=== PATIENT | female | born 2000 | race Caucasian/White ===

== ENCOUNTER 2022-11-27 12:02 | Emergency (ER) | payer BC ==
--- NOTE | 2022-11-27 12:12 | ERPHSYRPT ---
- History of Present Illness Time Seen by Provider: 11/27/22 12:12 Historian: patient Exam Limitations: no limitations Physician History: This is a 22-year-old white female patient of Dr. Colby who is approximately 12 weeks has not seen an continuous process tanner rotary drum at this time but will be seen 1 in [facility] and presents with intermittent vomiting for 12 weeks. She feels as though her vomiting is more frequent. She was given a prescription for Zofran and ODT but that did not help. Patient states she does have a history of recurrent urinary tract infections even prior to her . Patient has had no vaginal bleeding, she has no crampy abdominal pain. She denies chest pain and she denies shortness of breath. Timing/Duration: intermittent, worse Severity of Pain-Max: none Severity of Pain-Current: none Modifying Factors: Improves With: vomiting Associated Symptoms: nausea, vomiting, weakness Previous symptoms: same symptoms as today, no recent treatment Allergies/Adverse Reactions: Penicillins Allergy (Severe, Verified 11/27/22 12:15) Hives amoxicillin Allergy (Intermediate, Verified 11/27/22 12:15) Hives Travel Risk - International Travel Have you traveled outside of the country in past 3 weeks: No - Coronavirus Screening Are you exhibiting any of the following symptoms?: No Close contact with a COVID-19 positive Pt in past 14-21 Days: No - Review of Systems Constitutional: Weakness Eyes: No Symptoms Ears, Nose, & Throat: No Symptoms Respiratory: No Symptoms Cardiac: No Symptoms Abdominal/Gastrointestinal: Nausea, Vomiting, Appetite Changes Genitourinary Symptoms: Musculoskeletal: No Symptoms Skin: No Symptoms Neurological: No Symptoms Psychological: No Symptoms Endocrine: No Symptoms Hematologic/Lymphatic: No Symptoms Immunological/Allergic: No Symptoms All Other Systems: Reviewed and Negative - Past Medical History Pertinent Past Medical History: No - Past Surgical History Past Surgical History: No - Nursing Vital Signs Nursing Vital Signs: Initial Vital Signs Temperature 97.2 F 11/27/22 12:09 Pulse Rate 82 11/27/22 12:09 Respiratory Rate 20 11/27/22 12:09 Blood Pressure 158/98 11/27/22 12:09 O2 Sat by Pulse Oximetry 98 11/27/22 12:09 Pain Scale Pain Intensity 0 - Physical Exam General Appearance: no apparent distress, alert, anxiety Eye Exam: PERRL/EOMI, eyes nml inspection Ears, Nose, Throat Exam: normal ENT inspection, moist mucous membranes Neck Exam: normal inspection, non-tender, supple, full range of motion Respiratory Exam: normal breath sounds, lungs clear, airway intact, No chest tenderness, No respiratory distress Cardiovascular Exam: regular rate/rhythm, normal heart sounds, normal peripheral pulses Gastrointestinal/Abdomen Exam: soft, normal bowel sounds, other ( heart tones present and estimated to be approximately 170 280 bpm), No tenderness Pelvic Exam: not done Rectal Exam: not done Back Exam: normal inspection, normal range of motion, No CVA tenderness, No vertebral tenderness Extremity Exam: normal inspection, normal range of motion, pelvis stable Neurologic Exam: alert, oriented x 3, cooperative, choir accompanist II-XII nml as tested, normal mood/affect, nml cerebellar function, nml station & gait, sensation nml Skin Exam: normal color, warm, dry Lymphatic Exam: No adenopathy SpO2 Interpretation: normal O2 Delivery: Room Air - Course Nursing assessment & vital signs reviewed: Yes Ordered Tests: Active Orders 24 hr Category Date Time Status IV Insertion STAT Care 11/27/22 12:31 Active AMYLASE Stat Lab 11/27/22 12:35 Completed CBC W DIFF Stat Lab 11/27/22 12:35 Completed CMP Stat Lab 11/27/22 12:35 Completed CULTURE,URINE Stat Lab 11/27/22 16:22 Received HCG, Quantitative (Inhouse) Stat Lab 11/27/22 12:35 Completed LIPASE Stat Lab 11/27/22 12:35 Completed UA W/RFX UR CULTURE Stat Lab 11/27/22 16:22 Completed Medication Summary Generic Name Dose Route Start Last Admin Trade Name Freq PRN Reason Stop Dose Admin Sodium Chloride 500 mls @ 500 mls/hr 11/27/22 17:24 Sodium Chloride 0.9% 500 Ml IV 11/27/22 18:23 .Q1H ONE Discontinued Medications Generic Name Dose Route Start Last Admin Trade Name Freq PRN Reason Stop Dose Admin Sodium Chloride 1,000 mls @ 999 mls/hr 11/27/22 12:31 11/27/22 13:55 Sodium Chloride 0.9% 1000 Ml IV 11/27/22 13:31 Infused .Q1H1M STA Infusion Sodium Chloride Confirm 11/27/22 12:42 Sodium Chloride 0.9% 1000 Ml Administered 11/27/22 12:43 Dose 1,000 mls @ ud .ROUTE .STK-MED ONE Sodium Chloride 1,000 mls @ 999 mls/hr 11/27/22 14:22 11/27/22 16:08 Sodium Chloride 0.9% 1000 Ml IV 11/27/22 15:22 Infused .Q1H1M STA Infusion Sodium Chloride Confirm 11/27/22 14:35 Sodium Chloride 0.9% 1000 Ml Administered 11/27/22 14:36 Dose 1,000 mls @ ud .ROUTE .STK-MED ONE Sodium Chloride Confirm 11/27/22 17:28 Sodium Chloride 0.9% 500 Ml Administered 11/27/22 17:29 Dose 500 mls @ ud IV .STK-MED ONE Ondansetron HCl 4 mg 11/27/22 12:31 11/27/22 12:43 Ondansetron Hcl 4 Mg/2 Ml Vial IV 11/27/22 12:32 4 mg STAT ONE Administration Ondansetron HCl Confirm 11/27/22 12:42 Ondansetron Hcl 4 Mg/2 Ml Vial Administered 11/27/22 12:43 Dose 4 mg .ROUTE .STK-MED ONE Potassium Chloride 20 meq 11/27/22 13:18 11/27/22 13:41 Potassium Chloride Tab 10 Meq Tab PO 11/27/22 13:19 20 meq STAT ONE Administration Potassium Chloride Confirm 11/27/22 13:39 Potassium Chloride Tab 10 Meq Tab Administered 11/27/22 13:40 Dose 20 meq PO .STK-MED ONE Lab/Rad Data: Laboratory Result Diagrams 11/27/22 12:35 11/27/22 12:35 Laboratory Results 11/27/22 11/27/22 11/27/22 Range/Units 16:22 12:35 12:35 WBC 12.5 H (4.0-10.5) x10^3/uL RBC 5.29 (4.1-5.4) x10^6/uL Hgb 15.4 (12.0-16.0) g/dL Hct 42.0 (35-47) % MCV 79.4 (78-100) fL MCH 29.1 (26-32) pg MCHC 36.7 H (32-36) g/dL RDW 12.1 (11.5-14.0) % Plt Count 302 (150-450) x10^3/uL MPV 10.5 (7.5-11.0) fL Gran % 80.5 H (36.0-66.0) % Immature Gran % (Auto) 0.4 (0.00-0.4) % Nucleat RBC Rel Count 0.0 (0.00-0.1) % Eos # (Auto) 0.03 (0-0.5) x10^3/uL Immature Gran # (Auto) 0.05 H (0.00-0.03) x10^3u/L Absolute Lymphs (auto) 1.36 (1.0-4.6) x10^3/uL Absolute Monos (auto) 0.98 (0.0-1.3) x10^3/uL Absolute Nucleated RBC 0.00 (0.00-0.01) x10^3u/L Lymphocytes % 10.9 L (24.0-44.0) % Monocytes % 7.8 (0.0-12.0) % Eosinophils % 0.2 (0.00-5.0) % Basophils % 0.2 (0.0-0.4) % Absolute Granulocytes 10.09 H (1.4-6.9) x10^3/uL Basophils # 0.02 (0-0.4) x10^3/uL Sodium 137 (137-145) mmol/L Potassium 3.0 L* (3.5-5.1) mmol/L Chloride 95 L (98-107) mmol/L Carbon Dioxide 23 (22-30) mmol/L Anion Gap 21.7 H (5-15) MEQ/L BUN 15 (7-17) mg/dL Creatinine 0.63 (0.52-1.04) mg/dL Estimated GFR > 60.0 ML/MIN Glucose 116 H (74-106) mg/dL Calcium 9.8 (8.4-10.2) mg/dL Total Bilirubin 1.10 (0.2-1.3) mg/dL AST 23 (14-36) U/L ALT 19 (0-35) U/L Alkaline Phosphatase 61 (38-126) U/L Serum Total Protein 8.3 H (6.3-8.2) g/dL Albumin 4.8 (3.5-5.0) g/dL Amylase 91 (30-110) U/L Lipase 157 (23-300) U/L Beta HCG, Quant 665540 mIU/ml Urine Color Dark Yellow A (Yellow) Urine Appearance Clear (Clear) Urine pH 5.5 (4.6-8.0) Ur Specific [place] >=1.030 A (1.005-1.030) Urine Protein 100 A (Negative) Urine Glucose (UA) Negative (Negative) mg/dL Urine Ketones >=160 A (Negative) Urine Blood Negative (Negative) Urine Nitrite Negative (Negative) Urine Bilirubin Negative (Negative) Urine Urobilinogen 1.0 A (0.2) mg/dL Ur Leukocyte Esterase Negative (Negative) U Hyaline Cast (Auto) 26-50 A (0-2) /LPF Urine Microscopic RBC 0-2 (0-5) /HPF Urine Microscopic WBC 6-10 A (0-5) /HPF Ur Epithelial Cells Few (None Seen) /HPF Urine Bacteria Few A (None Seen) /HPF Urine Culture Reflexed YES (NO) - Progress Progress: improved, re-examined Progress Note: 11/27/22 17:29 Patient's medical issue is 1 of moderate complexity. The level of complexity and the work-up performed is based on review of the patient's past medical history, medication list, drug allergy list, history of present illness and physical findings on examination. Work-up here today includes placement of intravenous line, infusion of 2-1/2 L of normal saline solution to treat her dehydration, CBC, CMP, urinalysis and providing her with Zofran 4 mg intravenously. The results of the work-up were reviewed by me. Patient has dehydration secondary to vomiting. Patient is vomiting secondary to . Patient has Zofran medication at home. After hydrating her, the patient states she is feeling improved. She has been tolerating water and would like to try Sprite/slice. If she tolerates this well and receives the final 500 mL of normal saline we will discharge her to home with instruction to follow-up with her primary care provider for further evaluation management. Counseled pt/family regarding: lab results, diagnosis, need for follow-up Medical Desision Making - Independent Historian Additional History obtained from: Spouse - Discussion of managment Reviewed:: Test results Agreed on:: Treatment plan, need for follow-up - Diagnostic Testing Diagnostic test were ordered, analyzed, and reviewed by me: Yes - Risk of complications The pt has a mod risk of morbidity or mortality based on: Need for prescription drug management - Departure Departure Disposition: Home Clinical Impression: Vomiting during , Dehydration Condition: Stable Critical Care Time: No Referrals: NAYELI COLBY MD [Primary Care Provider] - Follow up/PCP as directed Additional Instructions: Drink plenty of clear liquids. Do not advance her diet until you are drinking clear liquids well. Use your Zofran medication if needed. Call your continuous process tanner rotary drum tomorrow, 11/28/2022 for further evaluation and management. Prescriptions: Ondansetron ODT 4 MG [Zofran Odt 4 mg] 4 mg PO Q6H PRN PRN #10 tablet PRN Reason: Vomiting
[2022-11-27] MEDS ORDERED: Sodium Chloride 0.9% 1000 ML 1,000 ML IV STA ×2 (12:31→14:22)
[2022-11-27] MEDS ORDERED: Zofran 4 MG/2 ML VIAL IV ONE (12:31)
[2022-11-27] MEDS ORDERED: Sodium Chloride 0.9% 1000 ML 1,000 ML ONE ×2 (12:42→14:35)
[2022-11-27] MEDS ORDERED: Zofran 4 MG/2 ML VIAL ONE (12:42)
[2022-11-27 12:46] LABS: Absolute Neutrophil Ct (ANC) 10.09 x10^3/uL (1.4-6.9); BASOPHIL % 0.2 % (0.0-0.4); Basophil (Absolute #) 0.02 x10^3/uL (0-0.4); Eosinophil % 0.2 % (0.00-5.0); Eosinophil (Absolute #) 0.03 x10^3/uL (0-0.5); Hemoglobin 15.4 g/dL (12.0-16.0); IMMATURE GRAN # 0.05 x10^3u/L (0.00-0.03); IMMATURE GRAN % 0.4 % (0.00-0.4); Lymphocyte (Absolute #) 1.36 x10^3/uL (1.0-4.6); Lymphocytes % 10.9 % (24.0-44.0); Mean Cell Volume 79.4 fL (78-100); Mean Corpuscular Hemoglobin 29.1 pg (26-32); Mean Corpuscular Hgb Concent. 36.7 g/dL (32-36); Mean Platelet Volume 10.5 fL (7.5-11.0); Monocyte (Absolute #) 0.98 x10^3/uL (0.0-1.3); Monocytes % 7.8 % (0.0-12.0); Neutrophil % 80.5 % (36.0-66.0); Platelet Count 302 x10^3/uL (150-450); Red Blood Count 5.29 x10^6/uL (4.1-5.4); Red Cell Distribution Width 12.1 % (11.5-14.0); White Blood Count 12.5 x10^3/uL (4.0-10.5)
[2022-11-27] MEDS ORDERED: Klor Con PO ONE ×2 (13:18→13:39)
[2022-11-27 13:19] LABS: ALBUMIN 4.8 g/dL (3.5-5.0); ALKALINE PHOSPHATASE 61 U/L (38-126); AMYLASE 91 U/L (30-110); ANION GAP 21.7 MEQ/L (5-15); BLOOD UREA NITROGEN 15 mg/dL (7-17); CHLORIDE 95 mmol/L (98-107); Calcium 9.8 mg/dL (8.4-10.2); Carbon Dioxide 23 mmol/L (22-30); Creatinine 1 0.63 mg/dL (0.52-1.04); EST GLOMERULAR FILTRATION RATE > 60.0 ML/MIN; Glucose 116 mg/dL (74-106); LIPASE 157 U/L (23-300); SGOT/AST 23 U/L (14-36); SGPT/ALT 19 U/L (0-35); SODIUM 137 mmol/L (137-145); Total Protein 8.3 g/dL (6.3-8.2)
[2022-11-27 13:43] LABS: HCG, Quantitative (Inhouse) 106720 mIU/ml
[2022-11-27 17:15] LABS: ADD URINE CULTURE? YES (NO); Appearance Clear (Clear); Bacteria Few /HPF (None Seen); Bilirubin Negative (Negative); Blood Negative (Negative); Epithelial Cells Few /HPF (None Seen); Glucose, Urine Negative (Negative); Hyaline Casts 26-50 /LPF (0-2); Ketones >=160 (Negative); Leukocyte Esterase Negative (Negative); Nitrite Negative (Negative); Ph 5.5 (4.6-8.0); Protein,Urine Dip 100 (Negative); RBC 0-2 /HPF (0-5); Specific Gravity >=1.030 (1.005-1.030)
[2022-11-27] MEDS ORDERED: Sodium Chloride 0.9% 500 ML 500 ML IV ONE ×2 (17:24→17:28)
[2022-11-27 17:35] VITALS: PULSE 68
[2022-11-27 17:36] VITALS: BP 113/75; O2SAT 100
== END 2022-11-27 19:02 | disposition home or self-care (01) ==
LOC: ED 12:02
DX: O21.9 Vomiting of pregnancy, unspecified (principal); Z3A.12 12 weeks gestation of pregnancy; E86.0 Dehydration; R07.9 Chest pain, unspecified
CPT/HCPCS: 36000; 36415; 80053; 81001; 82150; 83690; 84702; 85025; 87086; 96360; 96361; 96374; 99284; J2405; A9270-GY

== ENCOUNTER 2024-09-09 15:35 | Emergency (ER) | payer BC, MEDICAID ==
--- NOTE | 2024-09-09 15:58 | ERPHSYRPT ---
- History of Present Illness Time Seen by Provider: 09/09/24 15:58 Historian: patient, family Exam Limitations: no limitations Physician History: This is a 23-year-old white female patient who is approximately 6 weeks and presents with vomiting that began yesterday. She has vomited to the point where now she cannot hold anything down. She has not had diarrhea. She is has no complaints abdominal pain and she has no vaginal discharge. Her primary care provider is Dr. Colby. She has no known exposure to individuals with similar symptoms or been diagnosed with viral illness. Timing/Duration: yesterday Activities at Onset: none Severity of Pain-Max: none Severity of Pain-Current: none Modifying Factors: Improves With: vomiting Associated Symptoms: loss of appetite, nausea, vomiting, weakness Previous symptoms: no prior history, no recent treatment Allergies/Adverse Reactions: Penicillins Allergy (Severe, Verified 09/09/24 16:08) Hives amoxicillin Allergy (Intermediate, Verified 09/09/24 16:08) Hives Home Medications: Pnv No.95/Ferrous Fum/Folic AC [ Caplet] 1 tab PO DAILY 09/09/24 [History] Hx Tetanus, Diphtheria Vaccination/Date Given: No Hx Influenza Vaccination/Date Given: No Hx Pneumococcal Vaccination/Date Given: No Travel Risk - International Travel Have you traveled outside of the country in past 3 weeks: No - Emerging Infectious Disease Are you exhibiting symptoms associated with any current EIDs: Yes Symptoms: Vomitting - Review of Systems Constitutional: Weakness Eyes: No Symptoms Ears, Nose, & Throat: No Symptoms Respiratory: No Symptoms Abdominal/Gastrointestinal: Nausea, Vomiting, Appetite Changes, No Abdominal Pain Genitourinary Symptoms: Musculoskeletal: No Symptoms Skin: No Symptoms Neurological: No Symptoms Psychological: No Symptoms Endocrine: No Symptoms Hematologic/Lymphatic: No Symptoms Immunological/Allergic: No Symptoms All Other Systems: Reviewed and Negative - Past Medical History Pertinent Past Medical History: No - Past Surgical History Past Surgical History: No - Social History Smoking Status: Never smoker Exposure to second hand smoke: Yes Patient Lives Alone: No - Nursing Vital Signs Nursing Vital Signs: Initial Vital Signs Temperature 97.5 F 09/09/24 15:56 Pulse Rate 62 09/09/24 15:56 Respiratory Rate 20 09/09/24 15:56 Blood Pressure 134/63 09/09/24 15:56 O2 Sat by Pulse Oximetry 99 09/09/24 15:56 Pain Scale Pain Intensity 0 - Physical Exam General Appearance: no apparent distress, alert, anxiety Eye Exam: PERRL/EOMI, eyes nml inspection Ears, Nose, Throat Exam: dry mucous membranes Neck Exam: normal inspection, non-tender, supple, full range of motion Respiratory Exam: normal breath sounds, lungs clear, airway intact, No chest tenderness, No respiratory distress Cardiovascular Exam: regular rate/rhythm, normal heart sounds, normal peripheral pulses Gastrointestinal/Abdomen Exam: soft, normal bowel sounds, No tenderness Pelvic Exam: not done Rectal Exam: not done Back Exam: normal inspection, normal range of motion, No CVA tenderness, No vertebral tenderness Extremity Exam: normal inspection, normal range of motion, pelvis stable Neurologic Exam: alert, oriented x 3, cooperative, lever miller II-XII nml as tested, nml cerebellar function, nml station & gait, sensation nml Skin Exam: normal color, warm, dry Lymphatic Exam: No adenopathy SpO2 Interpretation: normal O2 Delivery: Room Air - Course Nursing assessment & vital signs reviewed: Yes Ordered Tests: Active Orders 24 hr Category Date Time Status AMYLASE Stat Lab 09/09/24 16:38 Completed CBC W DIFF Stat Lab 09/09/24 16:38 Completed CMP Stat Lab 09/09/24 16:38 Completed HCG, Quantitative (Inhouse) Stat Lab 09/09/24 16:38 Completed LIPASE Stat Lab 09/09/24 16:38 Completed MONO SCREEN Stat Lab 09/09/24 16:38 Completed UA W/RFX UR CULTURE Stat Lab 09/09/24 17:55 Received Medication Summary Discontinued Medications Generic Name Dose Route Start Last Admin Trade Name Pamella PRN Reason Stop Dose Admin Sodium Chloride 1,000 mls @ 999 mls/hr 09/09/24 16:25 09/09/24 16:34 Sodium Chloride 0.9% 1000 Ml IV 09/09/24 17:25 999 mls/hr .Q1H1M STA Administration Sodium Chloride Confirm 09/09/24 16:30 Sodium Chloride 0.9% 1000 Ml Administered 09/09/24 16:31 Dose 1,000 mls @ ud .ROUTE .STK-MED ONE Ondansetron HCl 4 mg 09/09/24 16:25 09/09/24 16:33 Ondansetron Hcl 4 Mg/2 Ml Vial IV 09/09/24 16:26 4 mg STAT ONE Administration Ondansetron HCl Confirm 09/09/24 16:30 Ondansetron Hcl 4 Mg/2 Ml Vial Administered 09/09/24 16:31 Dose 4 mg .ROUTE .STK-MED ONE Lab/Rad Data: Laboratory Result Diagrams 09/09/24 16:38 09/09/24 16:38 Laboratory Results 09/09/24 09/09/24 09/09/24 Range/Units 16:38 16:38 16:38 WBC (3.98-10.04) x10^3/uL RBC (3.93-5.22) x10^6/uL Hgb (11.2-15.7) g/dL Hct (34.1-44.9) % MCV (79.4-94.8) fL MCH (25.6-32.2) pg MCHC (32.2-35.5) g/dL RDW (11.7-14.4) % Plt Count (182-369) x10^3/uL MPV (9.4-12.3) fL Gran % (34.0-71.1) % Immature Gran % (Auto) (0.001-0.429) % Nucleat RBC Rel Count (0.00-0.2) % Eos # (Auto) (0.04-0.36) x10^3/uL Immature Gran # (Auto) (0.001-0.031) x10^3u/L Absolute Lymphs (auto) (1.18-3.74) x10^3/uL Absolute Monos (auto) (0.24-0.86) x10^3/uL Absolute Nucleated RBC (0.00-0.012) x10^3u/L Lymphocytes % (19.3-51.7) % Monocytes % (4.7-12.5) % Eosinophils % (0.7-5.8) % Basophils % (0.1-1.2) % Absolute Granulocytes (1.56-6.13) x10^3/uL Basophils # (0.01-0.08) x10^3/uL Sodium 138 (135-145) mmol/L Potassium 4.1 (3.5-5.1) mmol/L Chloride 103 (98-107) mmol/L Carbon Dioxide 19 L (22-30) mmol/L Anion Gap 19.3 H (5-15) MEQ/L BUN 14 (7-17) mg/dL Creatinine 0.81 (0.52-1.04) mg/dL Estimated GFR 105.9 ML/MIN Glucose 71 L (74-106) mg/dL Calcium 9.3 (8.4-10.2) mg/dL Total Bilirubin 0.80 (0.2-1.3) mg/dL AST 28 (14-36) U/L ALT 20 (0-35) U/L Alkaline Phosphatase 77 (38-126) U/L Serum Total Protein 8.3 H (6.3-8.2) g/dL Albumin 5.1 H (3.5-5.0) g/dL Amylase 70 (30-110) U/L Lipase 124 (23-300) U/L Beta HCG, Quant 72971 mIU/ml Monoscreen NEGATIVE (NEGATIVE) Influenza Type A Ag NEGATIVE (NEGATIVE) Influenza Type B Ag NEGATIVE (NEGATIVE) RSV (PCR) NEGATIVE (NEGATIVE) SARS-CoV-2 (PCR) NEGATIVE (NEGATIVE) 09/09/24 Range/Units 16:38 WBC 8.1 (3.98-10.04) x10^3/uL RBC 5.02 (3.93-5.22) x10^6/uL Hgb 13.5 (11.2-15.7) g/dL Hct 39.0 (34.1-44.9) % MCV 77.7 L (79.4-94.8) fL MCH 26.9 (25.6-32.2) pg MCHC 34.6 (32.2-35.5) g/dL RDW 13.7 (11.7-14.4) % Plt Count 232 (182-369) x10^3/uL MPV 10.0 (9.4-12.3) fL Gran % 85.8 H (34.0-71.1) % Immature Gran % (Auto) 0.5 H (0.001-0.429) % Nucleat RBC Rel Count 0.0 (0.00-0.2) % Eos # (Auto) 0 L (0.04-0.36) x10^3/uL Immature Gran # (Auto) 0.04 H (0.001-0.031) x10^3u/L Absolute Lymphs (auto) 0.81 L (1.18-3.74) x10^3/uL Absolute Monos (auto) 0.27 (0.24-0.86) x10^3/uL Absolute Nucleated RBC 0.00 (0.00-0.012) x10^3u/L Lymphocytes % 10.0 L (19.3-51.7) % Monocytes % 3.3 L (4.7-12.5) % Eosinophils % 0.0 L (0.7-5.8) % Basophils % 0.4 (0.1-1.2) % Absolute Granulocytes 6.94 H (1.56-6.13) x10^3/uL Basophils # 0.03 (0.01-0.08) x10^3/uL Sodium (135-145) mmol/L Potassium (3.5-5.1) mmol/L Chloride (98-107) mmol/L Carbon Dioxide (22-30) mmol/L Anion Gap (5-15) MEQ/L BUN (7-17) mg/dL Creatinine (0.52-1.04) mg/dL Estimated GFR ML/MIN Glucose (74-106) mg/dL Calcium (8.4-10.2) mg/dL Total Bilirubin (0.2-1.3) mg/dL AST (14-36) U/L ALT (0-35) U/L Alkaline Phosphatase (38-126) U/L Serum Total Protein (6.3-8.2) g/dL Albumin (3.5-5.0) g/dL Amylase (30-110) U/L Lipase (23-300) U/L Beta HCG, Quant mIU/ml Monoscreen (NEGATIVE) Influenza Type A Ag (NEGATIVE) Influenza Type B Ag (NEGATIVE) RSV (PCR) (NEGATIVE) SARS-CoV-2 (PCR) (NEGATIVE) - Progress Progress: improved Progress Note: 09/09/24 16:44 My medical decision making and the assignment of moderate complexity to this patient's medical issue today is based on review of the patient's past medical h istory, review of the patient's medication list, reviewed patient drug allergy list, history present illness and physical findings on examination. The workup in this patient includes placement of intravenous line, infusion of crystalloid solution, amylase, lipase, CBC, CMP, urinalysis and infusion of Zofran intravenously. We will also order viral swabs and monotest. Differential diagnosis includes was not limited to vomiting of , dehydration, urinary tract infection, electrolyte abnormalities, viral illness Counseled pt/family regarding: lab results, diagnosis - Departure Departure Disposition: Home Clinical Impression: Vomiting during Condition: Stable Critical Care Time: No Referrals: NAYELI COLBY MD [Primary Care Provider] - Follow up/PCP as directed Additional Instructions: Drink plenty of clear liquids before advancing your diet. Avoid fatty greasy spicy foods. Call your primary care provider and hydrostatic tester tomorrow, 09/10/2024, to make arrangements for follow-up appointment for further evaluation management. Prescriptions: Ondansetron ODT 4 MG [Zofran Odt 4 mg] 4 mg PO Q6H PRN PRN #10 tablet PRN Reason: Vomiting
[2024-09-09 16:08] VITALS: TEMP 97.5
[2024-09-09] MEDS ORDERED: Sodium Chloride 0.9% 1000 ML 1,000 ML ONE (16:30)
[2024-09-09] MEDS ORDERED: Zofran 4 MG/2 ML VIAL ONE (16:30)
[2024-09-09] MEDS: Zofran 4 MG/2 ML VIAL IV ONE (16:33)
[2024-09-09] MEDS: Sodium Chloride 0.9% 1000 ML 1,000 ML IV STA (16:34)
[2024-09-09 16:38] LABS: Absolute Neutrophil Ct (ANC) 6.94 x10^3/uL (1.56-6.13); BASOPHIL % 0.4 % (0.1-1.2); Basophil (Absolute #) 0.03 x10^3/uL (0.01-0.08); Eosinophil (Absolute #) 0 x10^3/uL (0.04-0.36); Hemoglobin 13.5 g/dL (11.2-15.7); IMMATURE GRAN # 0.04 x10^3u/L (0.001-0.031); IMMATURE GRAN % 0.5 % (0.001-0.429); Lymphocyte (Absolute #) 0.81 x10^3/uL (1.18-3.74); Mean Cell Volume 77.7 fL (79.4-94.8); Mean Corpuscular Hemoglobin 26.9 pg (25.6-32.2); Mean Corpuscular Hgb Concent. 34.6 g/dL (32.2-35.5); Monocyte (Absolute #) 0.27 x10^3/uL (0.24-0.86); Monocytes % 3.3 % (4.7-12.5); Neutrophil % 85.8 % (34.0-71.1); Platelet Count 232 x10^3/uL (182-369); Red Blood Count 5.02 x10^6/uL (3.93-5.22); Red Cell Distribution Width 13.7 % (11.7-14.4); White Blood Count 8.1 x10^3/uL (3.98-10.04)
[2024-09-09 16:46] VITALS: RESP 19; O2SAT 100
[2024-09-09 17:13] LABS: ALBUMIN 5.1 g/dL (3.5-5.0); ANION GAP 19.3 MEQ/L (5-15); BILIRUBIN,TOTAL 0.8 mg/dL (0.2-1.3); Calcium 9.3 mg/dL (8.4-10.2); Creatinine 1 0.81 mg/dL (0.52-1.04); EST GLOMERULAR FILTRATION RATE 105.9 ML/MIN; Potassium 4.1 mmol/L (3.5-5.1); Total Protein 8.3 g/dL (6.3-8.2)
[2024-09-09 17:16] LABS: INFLUENZA A NEGATIVE (NEGATIVE); INFLUENZA B NEGATIVE (NEGATIVE); RESPIRATORY SYNCTIAL VIRUS NEGATIVE (NEGATIVE); SARS-CoV-2 Xpert Express NEGATIVE (NEGATIVE)
[2024-09-09 18:23] LABS: Appearance Clear (Clear); Bacteria None Seen /HPF (None Seen); Bilirubin Negative (Negative); Blood Negative (Negative); Epithelial Cells Rare /HPF (None Seen); Glucose, Urine Negative (Negative); Hyaline Casts NONE SEEN /LPF (0-2); Ketones >=160 (Negative); Leukocyte Esterase Negative (Negative); Nitrite Negative (Negative); Ph 5.5 (4.6-8.0); Protein,Urine Dip 30 (Negative); RBC 0-2 /HPF (0-5); Specific Gravity >=1.030 (1.005-1.030); Urobilinogen 0.2 mg/dL (0.2)
[2024-09-09] MEDS ORDERED: Sodium Chloride 0.9% 500 ML 500 ML IV ONE (19:20)
[2024-09-09] MEDS: Sodium Chloride 0.9% 500 ML 500 ML IV ONE (19:21)
[2024-09-09 20:01] VITALS: BP 104/68; PULSE 53
== END 2024-09-09 20:29 | disposition home or self-care (01) ==
LOC: ED 15:35
DX: O21.9 Vomiting of pregnancy, unspecified (principal); Z3A.01 Less than 8 weeks gestation of pregnancy; Z79.899 Other long term (current) drug therapy
CPT/HCPCS: 0241U; 36415; 80053; 81001; 82150; 83690; 84702; 85025; 86308; 96360; 96361; 96374; 99285; 99284; J2405

== ENCOUNTER 2024-09-14 15:16 | Emergency (ER) | payer MEDICAID, OTHER ==
[2024-09-14 17:22] VITALS: TEMP 97.1
--- NOTE | 2024-09-14 17:54 | ERPHSYRPT ---
- History of Present Illness Historian: patient, family Exam Limitations: no limitations Patient Subjective Stated Complaint: PT HERE FOR VOMITING TODAY, SHE STATES SHE IS 7 WEEKS , SHE HAS BEEN TAKING HER ZOFRAN, Triage Nursing Assessment: PT ALERT, WALKED IN, RESP EASY, VOMITED X1 IN ER, SKIN W/D/P Timing/Duration: today Activities at Onset: none Severity of Pain-Max: none Severity of Pain-Current: none Modifying Factors: Improves With: vomiting Associated Symptoms: loss of appetite, nausea, vomiting, weakness Previous symptoms: no prior history, no recent treatment Hx Tetanus, Diphtheria Vaccination/Date Given: No Hx Influenza Vaccination/Date Given: No Hx Pneumococcal Vaccination/Date Given: No Immunizations Up to Date: Yes <AKYLEN RODRIGUEZ - Last Filed: 09/14/24 18:49> <IRAIS ALMANZA - Last Filed: 09/14/24 21:29> - History of Present Illness Time Seen by Provider: 09/14/24 17:54 Physician History: This is a 23-year-old white female patient who arrives by private vehicle and is a patient of Dr. Colby and is 7 weeks . She began vomiting today despite using oral/ODT Zofran. Patient concerned about dehydration. Patient denies abdominal pain. She has had no vaginal bleeding or vaginal discharge. She denies chest pain and she denies cough. (KAYLEN RODRIGUEZ) Allergies/Adverse Reactions: Penicillins Allergy (Severe, Verified 09/14/24 17:22) Hives amoxicillin Allergy (Intermediate, Verified 09/14/24 17:22) Hives Home Medications: Pnv No.95/Ferrous Fum/Folic AC [ Caplet] 1 tab PO DAILY 09/09/24 [History] Travel Risk - International Travel Have you traveled outside of the country in past 3 weeks: No - Emerging Infectious Disease Are you exhibiting symptoms associated with any current EIDs: Yes Symptoms: Vomitting <KAYLEN RODRIGUEZ - Last Filed: 09/14/24 18:49> - Review of Systems Constitutional: Weakness Eyes: No Symptoms Ears, Nose, & Throat: No Symptoms Respiratory: No Symptoms Cardiac: No Symptoms Abdominal/Gastrointestinal: Nausea, Vomiting, Diarrhea, Appetite Changes Genitourinary Symptoms: No Symptoms Musculoskeletal: No Symptoms Skin: No Symptoms Neurological: No Symptoms Psychological: No Symptoms Endocrine: No Symptoms Hematologic/Lymphatic: No Symptoms Immunological/Allergic: No Symptoms All Other Systems: Reviewed and Negative <KAYLEN RODRIGUEZ - Last Filed: 09/14/24 18:49> - Past Medical History Pertinent Past Medical History: Yes Cardiac History: No Pertinent History Respiratory History: Bronchitis Musculoskeletal History: No Pertinent History GI Medical History: No Pertinent History History: No Pertinent History Psycho-Social History: No Pertinent History Female Reproductive Disorders: No Pertinent History Other Medical History: pinky finger fracture - Past Surgical History Past Surgical History: No Other Surgical History: vaginal 2 years ago - Female History Hx Last Menstrual Period: JUL 30 Hx Now: Yes Gestational Age: 9 - Social History Smoking Status: Never smoker Exposure to second hand smoke: Yes Drug Use: none Patient Lives Alone: No - Social Determinants of Health Will the patient participate in the screening: Declined to provide <KAYLEN RODRIGUEZ - Last Filed: 09/14/24 18:49> - Physical Exam General Appearance: no apparent distress, alert, anxiety Eye Exam: PERRL/EOMI, eyes nml inspection Ears, Nose, Throat Exam: normal ENT inspection, moist mucous membranes Neck Exam: normal inspection, non-tender, supple, full range of motion Respiratory Exam: normal breath sounds, lungs clear, airway intact, No chest tenderness, No respiratory distress Cardiovascular Exam: regular rate/rhythm, normal heart sounds, normal peripheral pulses Gastrointestinal/Abdomen Exam: soft, normal bowel sounds, No tenderness Pelvic Exam: not done Rectal Exam: not done Back Exam: normal inspection, normal range of motion, No CVA tenderness, No vertebral tenderness Extremity Exam: normal inspection, normal range of motion, pelvis stable Neurologic Exam: alert, oriented x 3, cooperative, print production coordinator II-XII nml as tested, nml cerebellar function, nml station & gait, sensation nml Skin Exam: normal color, warm, dry Lymphatic Exam: No adenopathy SpO2 Interpretation: normal SpO2: 100 O2 Delivery: Room Air <KAYLEN RODRIGUEZ - Last Filed: 09/14/24 18:49> - Nursing Vital Signs Nursing Vital Signs: Initial Vital Signs Temperature 97.1 F 09/14/24 17:21 Pulse Rate 58 L 09/14/24 17:21 Respiratory Rate 18 09/14/24 17:21 Blood Pressure 135/83 09/14/24 17:21 O2 Sat by Pulse Oximetry 100 09/14/24 17:21 Pain Scale Pain Intensity 0 - Course Nursing assessment & vital signs reviewed: Yes <KAYLEN RODRIGUEZ - Last Filed: 09/14/24 18:49> Ordered Tests: Active Orders 24 hr Category Date Time Status IV Insertion STAT Care 09/14/24 17:54 Active AMYLASE Stat Lab 09/14/24 20:31 Completed CBC W DIFF Stat Lab 09/14/24 20:31 Completed CMP Stat Lab 09/14/24 20:31 Completed CULTURE,URINE Stat Lab 09/14/24 17:55 Received LIPASE Stat Lab 09/14/24 20:31 Completed MONO SCREEN Stat Lab 09/14/24 20:31 Completed UA W/RFX UR CULTURE Stat Lab 09/14/24 17:55 Completed Medication Summary Discontinued Medications Generic Name Dose Route Start Last Admin Trade Name Freq PRN Reason Stop Dose Admin Sodium Chloride 1,000 mls @ 999 mls/hr 09/14/24 17:54 09/14/24 20:43 Sodium Chloride 0.9% 1000 Ml IV 09/14/24 18:54 Infused .Q1H1M STA Infusion Sodium Chloride Confirm 09/14/24 18:12 Sodium Chloride 0.9% 1000 Ml Administered 09/14/24 18:13 Dose 1,000 mls @ ud .ROUTE .STK-MED ONE Nitrofurantoin Macrocrystals 100 mg 09/14/24 21:08 09/14/24 21:13 Nitrofurantoin Macro 100 Mg Capsule PO 09/14/24 21:09 100 mg STAT ONE Administration Nitrofurantoin Macrocrystals Confirm 09/14/24 21:11 Nitrofurantoin Macro 100 Mg Capsule Administered 09/14/24 21:12 Dose 100 mg .ROUTE .STK-MED ONE Ondansetron HCl 4 mg 09/14/24 17:54 09/14/24 18:41 Ondansetron Hcl 4 Mg/2 Ml Vial IV 09/14/24 17:55 4 mg STAT ONE Administration Ondansetron HCl Confirm 09/14/24 18:12 Ondansetron Hcl 4 Mg/2 Ml Vial Administered 09/14/24 18:13 Dose 4 mg .ROUTE .STK-MED ONE Lab/Rad Data: Laboratory Result Diagrams 09/14/24 20:31 09/14/24 20:31 Laboratory Results 09/14/24 09/14/24 09/14/24 Range/Units 20:31 20:31 20:31 WBC 8.9 (3.98-10.04) x10^3/uL RBC 4.60 (3.93-5.22) x10^6/uL Hgb 12.3 (11.2-15.7) g/dL Hct 36.7 (34.1-44.9) % MCV 79.8 (79.4-94.8) fL MCH 26.7 (25.6-32.2) pg MCHC 33.5 (32.2-35.5) g/dL RDW 13.8 (11.7-14.4) % Plt Count 234 (182-369) x10^3/uL MPV 10.3 (9.4-12.3) fL Gran % 88.2 H (34.0-71.1) % Immature Gran % (Auto) 0.4 (0.001-0.429) % Nucleat RBC Rel Count 0.0 (0.00-0.2) % Eos # (Auto) 0.07 (0.04-0.36) x10^3/uL Immature Gran # (Auto) 0.04 H (0.001-0.031) x10^3u/L Absolute Lymphs (auto) 0.61 L (1.18-3.74) x10^3/uL Absolute Monos (auto) 0.32 (0.24-0.86) x10^3/uL Absolute Nucleated RBC 0.00 (0.00-0.012) x10^3u/L Lymphocytes % 6.9 L (19.3-51.7) % Monocytes % 3.6 L (4.7-12.5) % Eosinophils % 0.8 (0.7-5.8) % Basophils % 0.1 (0.1-1.2) % Absolute Granulocytes 7.84 H (1.56-6.13) x10^3/uL Basophils # 0.01 (0.01-0.08) x10^3/uL Sodium 138 (135-145) mmol/L Potassium 4.6 (3.5-5.1) mmol/L Chloride 106 (98-107) mmol/L Carbon Dioxide 16 L* (22-30) mmol/L Anion Gap 20.9 H (5-15) MEQ/L BUN 12 (7-17) mg/dL Creatinine 0.66 (0.52-1.04) mg/dL Estimated GFR 127.9 ML/MIN Glucose 85 (74-106) mg/dL Calcium 9.1 (8.4-10.2) mg/dL Total Bilirubin 0.70 (0.2-1.3) mg/dL AST 22 (14-36) U/L ALT 16 (0-35) U/L Alkaline Phosphatase 67 (38-126) U/L Serum Total Protein 7.3 (6.3-8.2) g/dL Albumin 4.6 (3.5-5.0) g/dL Amylase 87 (30-110) U/L Lipase 183 (23-300) U/L Urine Color (Yellow) Urine Appearance (Clear) Urine pH (4.6-8.0) Ur Specific [place] (1.005-1.030) Urine Protein (Negative) Urine Glucose (UA) (Negative) mg/dL Urine Ketones (Negative) Urine Blood (Negative) Urine Nitrite (Negative) Urine Bilirubin (Negative) Urine Urobilinogen (0.2) mg/dL Ur Leukocyte Esterase (Negative) U Hyaline Cast (Auto) (0-2) /LPF Urine Microscopic RBC (0-5) /HPF Urine Microscopic WBC (0-5) /HPF Ur Epithelial Cells (None Seen) /HPF Urine Bacteria (None Seen) /HPF Urine Culture Reflexed (NO) Monoscreen NEGATIVE (NEGATIVE) Influenza Type A Ag (NEGATIVE) Influenza Type B Ag (NEGATIVE) RSV (PCR) (NEGATIVE) SARS-CoV-2 (PCR) (NEGATIVE) 09/14/24 09/14/24 Range/Units 19:30 17:55 WBC (3.98-10.04) x10^3/uL RBC (3.93-5.22) x10^6/uL Hgb (11.2-15.7) g/dL Hct (34.1-44.9) % MCV (79.4-94.8) fL MCH (25.6-32.2) pg MCHC (32.2-35.5) g/dL RDW (11.7-14.4) % Plt Count (182-369) x10^3/uL MPV (9.4-12.3) fL Gran % (34.0-71.1) % Immature Gran % (Auto) (0.001-0.429) % Nucleat RBC Rel Count (0.00-0.2) % Eos # (Auto) (0.04-0.36) x10^3/uL Immature Gran # (Auto) (0.001-0.031) x10^3u/L Absolute Lymphs (auto) (1.18-3.74) x10^3/uL Absolute Monos (auto) (0.24-0.86) x10^3/uL Absolute Nucleated RBC (0.00-0.012) x10^3u/L Lymphocytes % (19.3-51.7) % Monocytes % (4.7-12.5) % Eosinophils % (0.7-5.8) % Basophils % (0.1-1.2) % Absolute Granulocytes (1.56-6.13) x10^3/uL Basophils # (0.01-0.08) x10^3/uL Sodium (135-145) mmol/L Potassium (3.5-5.1) mmol/L Chloride (98-107) mmol/L Carbon Dioxide (22-30) mmol/L Anion Gap (5-15) MEQ/L BUN (7-17) mg/dL Creatinine (0.52-1.04) mg/dL Estimated GFR ML/MIN Glucose (74-106) mg/dL Calcium (8.4-10.2) mg/dL Total Bilirubin (0.2-1.3) mg/dL AST (14-36) U/L ALT (0-35) U/L Alkaline Phosphatase (38-126) U/L Serum Total Protein (6.3-8.2) g/dL Albumin (3.5-5.0) g/dL Amylase (30-110) U/L Lipase (23-300) U/L Urine Color Dark Yellow A (Yellow) Urine Appearance Cloudy A (Clear) Urine pH 5.5 (4.6-8.0) Ur Specific [place] >=1.030 A (1.005-1.030) Urine Protein 100 A (Negative) Urine Glucose (UA) Negative (Negative) mg/dL Urine Ketones >=160 A (Negative) Urine Blood Negative (Negative) Urine Nitrite Negative (Negative) Urine Bilirubin Negative (Negative) Urine Urobilinogen 1.0 A (0.2) mg/dL Ur Leukocyte Esterase Small A (Negative) U Hyaline Cast (Auto) 11-20 (0-2) /LPF Urine Microscopic RBC 6-10 A (0-5) /HPF Urine Microscopic WBC 21-50 A (0-5) /HPF Ur Epithelial Cells Moderate A (None Seen) /HPF Urine Bacteria Moderate A (None Seen) /HPF Urine Culture Reflexed YES (NO) Monoscreen (NEGATIVE) Influenza Type A Ag NEGATIVE (NEGATIVE) Influenza Type B Ag NEGATIVE (NEGATIVE) RSV (PCR) NEGATIVE (NEGATIVE) SARS-CoV-2 (PCR) NEGATIVE (NEGATIVE) - Progress Progress: improved <KAYLEN RODRIGUEZ - Last Filed: 09/14/24 18:49> - Progress Progress: improved <IRAIS ALMANZA - Last Filed: 09/14/24 21:29> - Progress Progress Note: 09/14/24 17:59 My medical decision making and the assignment of moderate complexity to this patient's medical issue today is based on review of the patient's past medical history, review the patient's medication list, reviewed patient drug allergy list, history present illness and physical findings on examination. The workup in this patient includes placement of intravenous line, infusion of Zofran, infusion of crystalloid, urinalysis, CBC, CMP, amylase, lipase, monotest, viral studies. Differential diagnosis includes but is not limited to urinary tract infection, dehydration, vomiting of , electrolyte abnormalities, viral illness 09/14/24 18:49 I am transferring care of this patient to Dr. Almanza at shift change. He will follow-up on workup results and make final disposition. (KAYLEN RODRIGUEZ) 09/14/24 21:10 urine suggestive of UTI - start macrobid labs suggestive of dehydration 09/14/24 21:19 pt reports significant allergic reaction to penicillins and cephalosporins, will start macrobid - per ACOG is a reasonable choice in first trimester in penicillin allergic pts plan for discharge home w/ PCP follow up this week - Maria Victoria, OB follow up as soon as she can establish w/ Dr London will dc home w/ phenergen for nausea recommend plenty of oral hydration w/ gatorade, clear liquids, electrolyte containing fluids return to ED if: unable to tolerate oral hydration, develop fevers that do not respond to tylenol, develop significant abdominal pain or bleeding (IRAIS ALMANZA) Medical Desision Making - Independent Historian Additional History obtained from: Family <RODRIGUEZKAYLEN [place] - Last Filed: 09/14/24 18:49> - Diagnostic Testing Diagnostic test were ordered, analyzed, and reviewed by me: No - Risk of complications Low Risk: Low risk of morbidity from additional dx testing or treatment <IRAIS ALMAZNA - Last Filed: 09/14/24 21:29> - Departure Departure Disposition: Home Critical Care Time: No <KAYLEN RODRIGUEZ - Last Filed: 09/14/24 18:49> - Departure Departure Disposition: Home Critical Care Time: No <IRAIS ALMANZA - Last Filed: 09/14/24 21:29> - Departure Clinical Impression: Vomiting affecting , Dehydration UTI (urinary tract infection) Qualifiers: Urinary tract infection type: acute cystitis Hematuria presence: without hematuria Qualified Code(s): N30.00 - Acute cystitis without hematuria Condition: Stable Referrals: NAYELI COLBY MD [Primary Care Provider] - Follow up/PCP as directed Instructions: Dehydration in adults - ED discharge instructions, Nausea and vomiting in adults - ED discharge instructions Additional Instructions: plan for discharge home w/ PCP follow up this week - Maria Victoria, OB follow up as soon as she can establish w/ Dr London will dc home w/ phenergen for nausea recommend plenty of oral hydration w/ gatorade, clear liquids, electrolyte containing fluids return to ED if: unable to tolerate oral hydration, develop fevers that do not respond to tylenol, develop significant abdominal pain or bleeding Prescriptions: Nitrofurantoin Macrocrystal [Nitrofurantoin] 100 mg PO BID 7 Days #13 cap Promethazine HCl 12.5 mg PO Q8H #10 tab
[2024-09-14] MEDS ORDERED: Zofran 4 MG/2 ML VIAL ONE (18:12)
[2024-09-14] MEDS ORDERED: Sodium Chloride 0.9% 1000 ML 1,000 ML ONE (18:12)
[2024-09-14] MEDS: Zofran 4 MG/2 ML VIAL IV ONE (18:41)
[2024-09-14] MEDS: Sodium Chloride 0.9% 1000 ML 1,000 ML IV STA (18:41)
[2024-09-14 20:10] LABS: INFLUENZA A NEGATIVE (NEGATIVE); INFLUENZA B NEGATIVE (NEGATIVE); RESPIRATORY SYNCTIAL VIRUS NEGATIVE (NEGATIVE); SARS-CoV-2 Xpert Express NEGATIVE (NEGATIVE)
[2024-09-14 20:34] LABS: Absolute Neutrophil Ct (ANC) 7.84 x10^3/uL (1.56-6.13); BASOPHIL % 0.1 % (0.1-1.2); Basophil (Absolute #) 0.01 x10^3/uL (0.01-0.08); Eosinophil % 0.8 % (0.7-5.8); Eosinophil (Absolute #) 0.07 x10^3/uL (0.04-0.36); Hematocrit 36.7 % (34.1-44.9); Hemoglobin 12.3 g/dL (11.2-15.7); IMMATURE GRAN # 0.04 x10^3u/L (0.001-0.031); IMMATURE GRAN % 0.4 % (0.001-0.429); Lymphocyte (Absolute #) 0.61 x10^3/uL (1.18-3.74); Lymphocytes % 6.9 % (19.3-51.7); Mean Cell Volume 79.8 fL (79.4-94.8); Mean Corpuscular Hemoglobin 26.7 pg (25.6-32.2); Mean Corpuscular Hgb Concent. 33.5 g/dL (32.2-35.5); Mean Platelet Volume 10.3 fL (9.4-12.3); Monocyte (Absolute #) 0.32 x10^3/uL (0.24-0.86); Monocytes % 3.6 % (4.7-12.5); Neutrophil % 88.2 % (34.0-71.1); Platelet Count 234 x10^3/uL (182-369); Red Cell Distribution Width 13.8 % (11.7-14.4); White Blood Count 8.9 x10^3/uL (3.98-10.04)
[2024-09-14 20:49] LABS: ALBUMIN 4.6 g/dL (3.5-5.0); ANION GAP 20.9 MEQ/L (5-15); BILIRUBIN,TOTAL 0.7 mg/dL (0.2-1.3); Calcium 9.1 mg/dL (8.4-10.2); Creatinine 1 0.66 mg/dL (0.52-1.04); EST GLOMERULAR FILTRATION RATE 127.9 ML/MIN; Potassium 4.6 mmol/L (3.5-5.1); Total Protein 7.3 g/dL (6.3-8.2)
[2024-09-14 20:51] LABS: Appearance Cloudy (Clear); Bacteria Moderate /HPF (None Seen); Bilirubin Negative (Negative); Blood Negative (Negative); Epithelial Cells Moderate /HPF (None Seen); Glucose, Urine Negative (Negative); Ketones >=160 (Negative); Leukocyte Esterase Small (Negative); Nitrite Negative (Negative); Ph 5.5 (4.6-8.0); Protein,Urine Dip 100 (Negative); Specific Gravity >=1.030 (1.005-1.030); WBC 21-50 /HPF (0-5)
[2024-09-14] MEDS ORDERED: Macrobid 100MG Capsule ONE (21:11)
[2024-09-14] MEDS: Macrobid 100MG Capsule PO ONE (21:13)
[2024-09-14 21:17] VITALS: BP 106/72; PULSE 61; RESP 20; O2SAT 100
== END 2024-09-14 21:34 | disposition home or self-care (01) ==
LOC: ED 15:16
DX: O21.9 Vomiting of pregnancy, unspecified (principal); O23.11 Infections of bladder in pregnancy, first trimester; N30.00 Acute cystitis without hematuria; Z3A.01 Less than 8 weeks gestation of pregnancy; E86.0 Dehydration; Z79.899 Other long term (current) drug therapy
CPT/HCPCS: 0241U; 36415; 80053; 81001; 82150; 83690; 85025; 86308; 87086; 96374; 99284; J2405; A9270-GY